=== PATIENT | male | born 1990 | race American Indian/Alaskan Native ===

== ENCOUNTER 2019-03-01 02:37 | Emergency (ER) | payer BC, OTHER ==
--- NOTE | 2019-03-01 03:13 | XRay Report ---
CHEST 1 VIEW INDICATION: Chest Pain. COMPARISON: None. FINDINGS: Support devices: None. Heart: Normal. Lungs/Pleura: No acute pulmonary or pleural findings. IMPRESSION: 1. No acute findings. Signer Name: Iraj Haley MD Signed: 03/01/2019 3:08 AM Workstation Name: [id number]
[2019-03-01 03:19] LABS: Basophils # (Auto) 0.1 K/mm3 (0.0-0.1); Basophils % (Auto) 0.7 % (0.0-1.8); Eosinophils # (Auto) 0.1 K/mm3 (0.0-0.4); Eosinophils % (Auto) 1.7 % (0.0-4.3); Lymphocytes # (Auto) 2.3 K/mm3 (1.2-5.4); Lymphocytes % (Auto) 31.1 % (13.4-35.0); Mean Corpuscular HGB Conc 35 % (32-34); Mean Corpuscular Volume 96 fl (84-94); Monocytes # (Auto) 0.9 K/mm3 (0.0-0.8); Monocytes % (Auto) 12.6 % (0.0-7.3); Platelet Count 256 K/mm3 (140-440); Red Blood Count 5.29 M/mm3 (3.65-5.03); Red Cell Distribution Width 13.6 % (13.2-15.2)
[2019-03-01 03:22] LABS: Hematocrit 50.5 % (35.5-45.6); Hemoglobin 17.9 gm/dl (11.8-15.2)
[2019-03-01 03:40] LABS: BUN/Creatinine Ratio 11; Blood Urea Nitrogen 8 mg/dL (9-20)
[2019-03-01 03:41] LABS: Calcium 9.4 mg/dL (8.4-10.2); Hemolysis Index 44
[2019-03-01] MEDS ORDERED: IBUPROFEN 800 MG TAB PO ONE (04:08)
[2019-03-01] MEDS ORDERED: ALUM-MAG HYDROXIDE-SIMETHICONE 200-200-20MG/5ML ORAL LIQD 30 ML PO ONE (04:08)
[2019-03-01] MEDS ORDERED: LIDOCAINE VISCOUS 2% 15 ML ORAL LIQD PO ONE (04:08)
[2019-03-01] MEDS ORDERED: SODIUM CHLORIDE 0.9% 1000 ML 1,000 ML IV ONE (04:08)
--- NOTE | 2019-03-01 04:51 | Emergency Department Report ---
ED Chest Pain HPI - General Chief Complaint: Chest Pain Stated Complaint: CP Time Seen by Provider: 03/01/19 04:04 Source: patient Mode of arrival: Ambulatory Limitations: No Limitations - History of Present Illness Initial Comments: Mr. Pryor is s 28 y/o aam with hx of htn, Asthma, and obesity, who presents for CP 04/15, x 3 days. states CP orignated on right lateral chest wall , is now on left lateral chest wall pain , now intermittent sob, cough. pt denies fever or chills, no n/v , no numbness or tingling. Symptoms are exacerbated by activity, symptoms are relieved by rest. MD Complaint: chest pain Onset/Timin -: days(s) Onset: during rest Pain Location: substernal, other Pain Radiation: none Severity: moderate Severity scale (0 -10): 5 Quality: tightness Consistency: constant Improves With: nothing Worsens With: inspiration, movement re: denies: nausea, vomting, diaphoresis, dyspnea, sense of impending doom Other Symptoms: cough. denies: fever, syncope, rash, leg swelling, palpitations Treatments Prior to Arrival: none - Related Data On Oral Contraceptives: No Previous Rx's Medication Instructions Recorded Last Taken Type lisinopriL [Zestril TAB] 20 mg PO QDAY #60 tablet 03/16/15 Unknown Rx Famotidine [Pepcid] 20 mg PO BID #60 tablet 03/01/19 Unknown Rx Ibuprofen [Motrin 800 MG tab] 800 mg PO Q8HR PRN #30 tablet 03/01/19 Unknown Rx Allergies Allergy/AdvReac Type Severity Reaction Status Date / Time No Known Allergies Allergy Unverified 03/16/15 19:43 Heart Score - HEART Score History: Slightly suspicious EKG: Non-specific Age: < 45 Risk factors: No known risk factors Troponin: < normal limit HEART Score: 1 ED Review of Systems ROS: Stated complaint: CP Other details as noted in HPI Constitutional: denies: chills, fever Eyes: denies: eye pain, eye discharge, vision change ENT: denies: ear pain, throat pain Respiratory: cough. denies: shortness of breath, wheezing Cardiovascular: denies: chest pain, palpitations Endocrine: no symptoms reported Gastrointestinal: as per HPI, nausea, vomiting Genitourinary: as per HPI Musculoskeletal: denies: back pain, joint swelling, arthralgia Skin: denies: rash, lesions Neurological: denies: headache, weakness, paresthesias Psychiatric: denies: anxiety, depression Hematological/Lymphatic: denies: easy bleeding, easy bruising ED Past Medical Hx - Past Medical History Previous Medical History?: No Hx Hypertension: Yes - Surgical History Past Surgical History?: No - Social History Smoking Status: Former Smoker Substance Use Type: None - Medications Home Medications: Home Medications Medication Instructions Recorded Confirmed Last Taken Type lisinopriL [Zestril TAB] 20 mg PO QDAY #60 tablet 03/16/15 Unknown Rx Famotidine [Pepcid] 20 mg PO BID #60 tablet 03/01/19 Unknown Rx Ibuprofen [Motrin 800 MG tab] 800 mg PO Q8HR PRN #30 tablet 03/01/19 Unknown Rx ED Physical Exam - General Limitations: No Limitations General appearance: alert, in no apparent distress - Head Head exam: Present: atraumatic, normocephalic - Eye Eye exam: Present: normal appearance, PERRL, EOMI Pupils: Present: normal accommodation - ENT ENT exam: Present: normal exam, normal orophraynx, mucous membranes moist, TM's normal bilaterally, normal external ear exam - Neck Neck exam: Present: normal inspection, full ROM. Absent: tenderness, meningismus, lymphadenopathy, thyromegaly - Expanded Neck Exam Expanded Neck exam: Absent: carotid bruit - Respiratory Respiratory exam: Present: normal lung sounds bilaterally, chest wall tenderness (right lateral ). Absent: respiratory distress, wheezes, stridor - Cardiovascular Cardiovascular Exam: Present: regular rate, normal rhythm, normal heart sounds. Absent: systolic murmur, diastolic murmur, rubs, gallop - GI/Abdominal GI/Abdominal exam: Present: soft, normal bowel sounds. Absent: distended, tenderness, guarding, rebound, rigid, bruit, hernia - Rectal Rectal exam: Present: deferred - Extremities Exam Extremities exam: Present: normal inspection, full ROM, normal capillary refill. Absent: tenderness, pedal edema, calf tenderness - Back Exam Back exam: Present: normal inspection, tenderness, rash noted. Absent: full ROM, CVA tenderness (R), CVA tenderness (L), muscle spasm - Neurological Exam Neurological exam: Present: alert, oriented X3, CN II-XII intact, normal gait, reflexes normal - Psychiatric Psychiatric exam: Present: normal affect, normal mood - Skin Skin exam: Present: warm, dry, intact, normal color. Absent: rash CARITO score - Carito Score Age > 65: (0) No Aspirin use within the Past 7 Days: (0) No 3 or more CAD Risk Factors: (0) No 2 or more Angina events in past 24 hrs: (0) No Known CAD with more than 50% Stenosis: (0) No Elevated Cardiac Markers: (0) No ST Deviation Greater than 0.5mm: (0) No CARITO Score: 0 ED Medical Decision Making - Lab Data Result diagrams: 03/01/19 03:02 03/01/19 03:02 Labs 03/01/19 03/01/19 03/01/19 03:02 03:02 04:32 WBC 7.4 RBC 5.29 H Hgb 17.9 H Hct 50.5 H MCV 96 H MCH 34 H MCHC 35 H RDW 13.6 Plt Count 256 Lymph % (Auto) 31.1 [place] % (Auto) 12.6 H Eos % (Auto) 1.7 Baso % (Auto) 0.7 Lymph # 2.3 [place] # 0.9 H Eos # 0.1 Baso # 0.1 Seg Neutrophils % 53.9 Seg Neutrophils # 4.0 Sodium 136 L Potassium 4.0 Chloride 99.4 Carbon Dioxide 19 L Anion Gap 22 BUN 8 L Creatinine 0.7 L Estimated GFR > 60 BUN/Creatinine Ratio 11 Glucose 117 H Calcium 9.4 Troponin T < 0.010 < 0.010 - EKG Data EKG shows normal: sinus rhythm Rate: tachycardia - EKG Data When compared to previous EKG there are: previous EKG unavailable Interpretation: nonspecific ST-T wave lashon (NSR, No ST Elevated HI, EKG interp by ED attending ) Critical care attestation.: If time is entered above; I have spent that time in minutes in the direct care of this critically ill patient, excluding procedure time. ED Disposition Clinical Impression: Mild dehydration, Atypical chest pain Disposition: TO HOME OR SELFCARE Is pt being admited?: No Does the pt Need Aspirin: No Condition: Stable Instructions: Chest Pain (ED), Dehydration (ED) Prescriptions: Ibuprofen [Motrin 800 MG tab] 800 mg PO Q8HR PRN #30 tablet PRN Reason: Pain , Severe (7-10) Famotidine [Pepcid] 20 mg PO BID #60 tablet Referrals: DAWSON LENTZ MD [Staff Physician] - 3-5 Days Forms: Work/School Release Form(ED) Time of Disposition: 05:56
[2019-03-01 06:31] VITALS: BP 146/78
== END 2019-03-01 06:32 | disposition home or self-care (01) ==
LOC: ED 02:37
DX: R07.89 Other chest pain (principal); E86.0 Dehydration; I10 Essential (primary) hypertension
CPT/HCPCS: 36415; 71045; 80048; 84484; 85025; 93005; 93010; 96360; 96361; 99284; J7030

== ENCOUNTER 2019-06-16 11:00 | Emergency (ER) | payer OTHER, SELFPAY ==
[2019-06-16] MEDS ORDERED: SODIUM CHLORIDE 0.9% 1000 ML 1,000 ML IV ONE ×2 (11:37→14:11)
[2019-06-16] MEDS ORDERED: ONDANSETRON 4 MG/2 ML INJ IV ONE ×2 (11:37→14:58)
[2019-06-16] MEDS ORDERED: MORPHINE 4 MG/1 ML INJ IV ONE (11:37)
[2019-06-16] MEDS ORDERED: KETOROLAC 30 MG/1 ML INJ IV ONE (11:37)
--- NOTE | 2019-06-16 11:37 | Emergency Department Report ---
ED General Adult HPI - General Chief complaint: Medical Clearance Stated complaint: FEELING BAD Time Seen by Provider: 06/16/19 11:29 Source: patient Mode of arrival: Ambulatory Limitations: No Limitations - History of Present Illness Initial comments: CC: "I feel shaky." HPI: Mr. Pryor is a 28 yo male with hx of HTN, severe obesity who presents with generalized malaise for several days. He feels shaky. He has productive cough. He has nondescript chest pain. Has generalized aches. He has dry mouth. Drank alcohol last night. He drinks vodka daily. Used ecstacy on Monday night. Unknown sick contacts. Has been taking TheraFlu for cold s ymptoms. Upon further history taking, this gentleman admitted to alcohol, ecstasy, cocaine use on Monday. He was in his normal state of health. He did not hydrate well yesterday. He continued to drink alcohol yesterday evening. Today he has chills cough body aches. He was around several individuals on Monday. He admitted to not practicing appropriate social distancing on Monday. This is the first time he had been out in several months. -: Gradual, days(s) (Several days) Location: chest Quality: aching, dull Consistency: constant Improves with: none Worsens with: none Associated Symptoms: chest pain, cough, malaise - Related Data Previous Rx's Medication Instructions Recorded Last Taken Type lisinopriL [Zestril TAB] 20 mg PO QDAY #60 tablet 03/16/15 Unknown Rx Famotidine [Pepcid] 20 mg PO BID #60 tablet 03/01/19 Unknown Rx Ibuprofen [Motrin 800 MG tab] 800 mg PO Q8HR PRN #30 tablet 03/01/19 Unknown Rx Allergies Allergy/AdvReac Type Severity Reaction Status Date / Time No Known Allergies Allergy Unverified 03/16/15 19:43 ED Review of Systems ROS: Stated complaint: FEELING BAD Other details as noted in HPI Comment: All other systems reviewed and negative Constitutional: malaise Respiratory: cough Cardiovascular: chest pain ED Past Medical Hx - Past Medical History Previous Medical History?: Yes Hx Hypertension: Yes - Surgical History Past Surgical History?: No - Social History Smoking Status: Current Some Day Smoker Substance Use Type: Alcohol, Marijuana, Methamphetamines, Other - Medications Home Medications: Home Medications Medication Instructions Recorded Confirmed Last Taken Type lisinopriL [Zestril TAB] 20 mg PO QDAY #60 tablet 03/16/15 Unknown Rx Famotidine [Pepcid] 20 mg PO BID #60 tablet 03/01/19 Unknown Rx Ibuprofen [Motrin 800 MG tab] 800 mg PO Q8HR PRN #30 tablet 03/01/19 Unknown Rx ED Physical Exam - General Limitations: No Limitations General appearance: alert, in no apparent distress, anxious, other (Clammy sweaty anxious) - Head Head exam: Present: atraumatic, normocephalic - Eye Eye exam: Present: normal appearance - ENT ENT exam: Present: mucous membranes dry - Neck Neck exam: Present: normal inspection, full ROM - Respiratory Respiratory exam: Present: normal lung sounds bilaterally. Absent: respiratory distress, wheezes, rales, rhonchi - Cardiovascular Cardiovascular Exam: Present: normal rhythm, tachycardia, normal heart sounds. Absent: systolic murmur, diastolic murmur, rubs, gallop - GI/Abdominal GI/Abdominal exam: Present: soft, normal bowel sounds. Absent: distended, tenderness, guarding, rebound - Extremities Exam Extremities exam: Present: normal inspection - Neurological Exam Neurological exam: Present: alert, oriented X3 - Psychiatric Psychiatric exam: Present: normal affect, anxious - Skin Skin exam: Present: warm, dry, intact, normal color. Absent: rash ED Course Vital Signs 06/16/19 06/16/19 06/16/19 11:09 11:36 12:20 Temperature 98.7 F 98.7 F Pulse Rate 113 H 112 H Respiratory 20 11 L 11 L Rate Blood Pressure 179/121 Blood Pressure 182/117 [Right] O2 Sat by Pulse 97 Oximetry 06/16/19 15:44 Temperature 98.3 F Pulse Rate 104 H Respiratory 14 Rate Blood Pressure Blood Pressure 176/118 [Right] O2 Sat by Pulse 98 Oximetry ED Medical Decision Making - Lab Data Result diagrams: 06/16/19 11:42 06/16/19 11:42 Laboratory Results - last 72 hr 06/16/19 06/16/19 06/16/19 11:27 11:27 11:42 WBC RBC Hgb Hct MCV MCH MCHC RDW Plt Count Lymph % (Auto) [place] % (Auto) Eos % (Auto) Baso % (Auto) Lymph # [place] # Eos # Baso # Seg Neutrophils % Seg Neutrophils # D-Dimer Sodium Potassium Chloride Carbon Dioxide Anion Gap BUN Creatinine Estimated GFR BUN/Creatinine Ratio Glucose Calcium Ferritin Lactate Dehydrogenase Troponin T C-Reactive Protein Urine Color Eknya Urine Turbidity Clear Urine pH 7.0 Ur Specific [place] 1.023 Urine Protein 100 mg/dl Urine Glucose (UA) Neg Urine Ketones Tr Urine Blood Neg Urine Nitrite Neg Urine Bilirubin Neg Urine Urobilinogen 4.0 Ur Leukocyte Esterase Neg Urine WBC (Auto) 2.0 Urine RBC (Auto) 3.0 U Epithel Cells (Auto) < 1.0 Urine Mucus Few Salicylates < 0.3 L Urine Opiates Screen Presumptive negative Urine Methadone Screen Presumptive negative Acetaminophen Ur Barbiturates Screen Presumptive negative Ur Phencyclidine Scrn Presumptive negative Ur Amphetamines Screen Presumptive positive U Benzodiazepines Scrn Presumptive negative Urine Cocaine Screen Presumptive positive U Marijuana (THC) Screen Presumptive positive Drugs of Abuse Note Disclamer Plasma/Serum Alcohol 06/16/19 06/16/19 06/16/19 11:42 11:42 11:42 WBC RBC Hgb Hct MCV MCH MCHC RDW Plt Count Lymph % (Auto) [place] % (Auto) Eos % (Auto) Baso % (Auto) Lymph # [place] # Eos # Baso # Seg Neutrophils % Seg Neutrophils # D-Dimer Sodium 131 L Potassium 3.6 Chloride 94.5 L Carbon Dioxide 20 L Anion Gap 20 BUN 5 L Creatinine 0.9 Estimated GFR > 60 BUN/Creatinine Ratio 6 Glucose 139 H Calcium 9.4 Ferritin Lactate Dehydrogenase 434 H Troponin T < 0.010 C-Reactive Protein 0.80 Urine Color Urine Turbidity Urine pH Ur Specific [place] Urine Protein Urine Glucose (UA) Urine Ketones Urine Blood Urine Nitrite Urine Bilirubin Urine Urobilinogen Ur Leukocyte Esterase Urine WBC (Auto) Urine RBC (Auto) U Epithel Cells (Auto) Urine Mucus Salicylates Urine Opiates Screen Urine Methadone Screen Acetaminophen < 5.0 L Ur Barbiturates Screen Ur Phencyclidine Scrn Ur Amphetamines Screen U Benzodiazepines Scrn Urine Cocaine Screen U Marijuana (THC) Screen Drugs of Abuse Note Plasma/Serum Alcohol < 0.01 06/16/19 06/16/19 06/16/19 11:42 11:42 11:42 WBC 10.0 RBC 5.07 H Hgb 17.0 H Hct 48.4 H MCV 95 H MCH 34 H MCHC 35 H RDW 13.3 Plt Count 212 Lymph % (Auto) 11.1 L [place] % (Auto) 7.6 H Eos % (Auto) 0.1 Baso % (Auto) 0.6 Lymph # 1.1 L [place] # 0.8 Eos # 0.0 Baso # 0.1 Seg Neutrophils % 80.6 H Seg Neutrophils # 8.0 H D-Dimer < 135.00 Sodium Potassium Chloride Carbon Dioxide Anion Gap BUN Creatinine Estimated GFR BUN/Creatinine Ratio Glucose Calcium Ferritin 2432.0 H Lactate Dehydrogenase Troponin T C-Reactive Protein Urine Color Urine Turbidity Urine pH Ur Specific [place] Urine Protein Urine Glucose (UA) Urine Ketones Urine Blood Urine Nitrite Urine Bilirubin Urine Urobilinogen Ur Leukocyte Esterase Urine WBC (Auto) Urine RBC (Auto) U Epithel Cells (Auto) Urine Mucus Salicylates Urine Opiates Screen Urine Methadone Screen Acetaminophen Ur Barbiturates Screen Ur Phencyclidine Scrn Ur Amphetamines Screen U Benzodiazepines Scrn Urine Cocaine Screen U Marijuana (THC) Screen Drugs of Abuse Note Plasma/Serum Alcohol - EKG Data 06/16/19 12:10 EKG Sinus Tachycardia 110 bpm normal axis prolonged QT no ST elevation - Radiology Data Radiology results: report reviewed Chest radiograph: No acute findings - Medical Decision Making This gentleman presents with body aches cough chills which began today. I suspect COVID 19 coronavirus infection after potential exposure at a recent alliance party on Monday night. There is also an element of dehydration. D-dimer is negative. Ferritin markedly elevated. No evidence of pneumonia. He was treated with IV fluid hydration. Urine drug screen positive for cocaine and marijuana. He stated that he was initially dishonest about his drug use because he was embarrassed. Diagnosis suspected COVID 19 infection, dehydration Vital Signs - 24 hr 06/16/19 06/16/19 06/16/19 11:09 11:36 12:20 Temperature 98.7 F 98.7 F Pulse Rate 113 H 112 H Respiratory 20 11 L 11 L Rate Blood Pressure 179/121 Blood Pressure 182/117 [Right] O2 Sat by Pulse 97 Oximetry 06/16/19 15:44 Temperature 98.3 F Pulse Rate 104 H Respiratory 14 Rate Blood Pressure Blood Pressure 176/118 [Right] O2 Sat by Pulse 98 Oximetry Critical care attestation.: If time is entered above; I have spent that time in minutes in the direct care of this critically ill patient, excluding procedure time. ED Disposition Clinical Impression: Suspected 2019 novel coronavirus infection, Dehydration Disposition: DC-01 TO HOME OR SELFCARE Is pt being admited?: No Does the pt Need Aspirin: No Condition: Stable Instructions: COVID-19 Additional Instructions: You must self isolate self quarantine for the next 14 days. Referrals: ARNOLD NAJERA MD [Staff Physician] - 3-5 Days
[2019-06-16 11:57] LABS: Bilirubin,Urine NEG (Negative); Blood,Urine NEG (Negative); Color,Urine Amber (Yellow); Mucus,Urine FEW /HPF
[2019-06-16 12:00] LABS: Benzodiazepines Screen,Urine PRESUMPTIVE NEGATIVE; Methadone Screen,Urine PRESUMPTIVE NEGATIVE; Opiate Screen,Urine PRESUMPTIVE NEGATIVE
--- NOTE | 2019-06-16 12:01 | XRay Report ---
CHEST 1 VIEW INDICATION: Chest Pain. COMPARISON: 03/01/2019. FINDINGS: Support devices: None. Heart: Normal. Lungs/Pleura: No acute pulmonary or pleural findings. IMPRESSION: 1. No acute findings. No significant change. Signer Name: Iraj Haley MD Signed: 06/16/2019 11:56 AM Workstation Name: [id number]
[2019-06-16 12:05] LABS: Basophils # (Auto) 0.1 K/mm3 (0.0-0.1); Basophils % (Auto) 0.6 % (0.0-1.8); Eosinophils % (Auto) 0.1 % (0.0-4.3); Hematocrit 48.4 % (35.5-45.6); Lymphocytes # (Auto) 1.1 K/mm3 (1.2-5.4); Lymphocytes % (Auto) 11.1 % (13.4-35.0); Mean Corpuscular HGB Conc 35 % (32-34); Mean Corpuscular Volume 95 fl (84-94); Monocytes # (Auto) 0.8 K/mm3 (0.0-0.8); Monocytes % (Auto) 7.6 % (0.0-7.3); Platelet Count 212 K/mm3 (140-440); Red Blood Count 5.07 M/mm3 (3.65-5.03); Red Cell Distribution Width 13.3 % (13.2-15.2)
[2019-06-16 12:22] LABS: BUN/Creatinine Ratio 6; Blood Urea Nitrogen 5 mg/dL (9-20); Calcium 9.4 mg/dL (8.4-10.2); Hemolysis Index 5
[2019-06-16 12:29] LABS: Amphetamine Screen,Urine PRESUMPTIVE POSITIVE; Cannabinoid Screen,Urine PRESUMPTIVE POSITIVE; Cocaine Screen,Urine PRESUMPTIVE POSITIVE
[2019-06-16] MEDS ORDERED: IBUPROFEN 800 MG TAB PO ONE (13:07)
[2019-06-16] MEDS ORDERED: ACETAMINOPHEN 500 MG TAB PO ONE (13:07)
[2019-06-16] MEDS ORDERED: ALUM-MAG HYDROXIDE-SIMETHICONE 200-200-20MG/5ML ORAL LIQD 30 ML PO ONE (14:58)
[2019-06-18 12:36] VITALS: BP 176/118
== END 2019-06-16 16:26 | disposition home or self-care (01) ==
LOC: ED 11:00
DX: Z20.828 Contact with and (suspected) exposure to other viral communicable diseases (principal); E86.0 Dehydration; R53.81 Other malaise; R05 Cough; R07.89 Other chest pain; I10 Essential (primary) hypertension; F17.200 Nicotine dependence, unspecified, uncomplicated; F12.10 Cannabis abuse, uncomplicated; F15.10 Other stimulant abuse, uncomplicated; Z79.1 Long term (current) use of non-steroidal anti-inflammatories (NSAID); Z79.899 Other long term (current) drug therapy
CPT/HCPCS: 36415; 71045; 80048; 80307; 81001; 82728; 83615; 84145; 84484; 85025; 85379; 86140; 93005; 96361; 96374; 96375; 96376; 99284; J1885; J2270; J2405; J7030; 80320; G0480

== ENCOUNTER 2020-06-19 14:29 | Emergency (ER) | payer SELFPAY ==
[2020-06-19 16:09] VITALS: BP 171/118
[2020-06-19] MEDS ORDERED: HYDROcodone/ACETAMINOPHEN 5-325 MG TAB PO ONE (16:14)
--- NOTE | 2020-06-19 16:28 | Emergency Department Report ---
ED Lower Extremity HPI - General Chief Complaint: Extremity Injury, Lower Stated Complaint: LEG INJURY Time Seen by Provider: 06/19/20 16:14 Source: patient Mode of arrival: Wheelchair Limitations: No Limitations, Physical Limitation - History of Present Illness Initial Comments: Patient is a 29-year-old male presents emergency room complaints of right leg injury that occurred yesterday. Patient states that he was playing outdoor basketball and tripped and fell. He states since then he has had right leg pain. He states he has not been able to ambulate very much secondary the pain. He states he has pain in his right ankle and right lateral duncan. He denies ever injuring in the past. He denies any numbness or weakness. Past medical history of hypertension. No allergies medications. - Related Data Previous Rx's Medication Instructions Recorded Last Taken Type lisinopriL [Zestril TAB] 20 mg PO QDAY #60 tablet 03/16/15 Unknown Rx Famotidine [Pepcid] 20 mg PO BID #60 tablet 03/01/19 Unknown Rx Ibuprofen [Motrin 800 MG tab] 800 mg PO Q8HR PRN #30 tablet 03/01/19 Unknown Rx Allergies Allergy/AdvReac Type Severity Reaction Status Date / Time No Known Allergies Allergy Unverified 03/16/15 19:43 ED Review of Systems ROS: Stated complaint: LEG INJURY Other details as noted in HPI Comment: All other systems reviewed and negative ED Past Medical Hx - Past Medical History Previous Medical History?: Yes Hx Hypertension: Yes - Social History Smoking Status: Former Smoker Substance Use Type: None - Medications Home Medications: Home Medications Medication Instructions Recorded Confirmed Last Taken Type lisinopriL [Zestril TAB] 20 mg PO QDAY #60 tablet 03/16/15 Unknown Rx Famotidine [Pepcid] 20 mg PO BID #60 tablet 03/01/19 Unknown Rx Ibuprofen [Motrin 800 MG tab] 800 mg PO Q8HR PRN #30 tablet 03/01/19 Unknown Rx ED Physical Exam - General Limitations: No Limitations, Physical Limitation General appearance: alert, in no apparent distress - Head Head exam: Present: atraumatic, normocephalic - Eye Eye exam: Present: normal appearance - ENT ENT exam: Present: mucous membranes moist - Respiratory Respiratory exam: Absent: respiratory distress, accessory muscle use - Extremities Exam Extremities exam: Present: other (ttp to the right ankle, medial > lateral, diffuse edema of the right ankle, ttp to the right lateral duncan, decreased ROM secondary to pain, no obvious deformity, neurovascularly intact) - Neurological Exam Neurological exam: Present: alert, oriented X3 - Psychiatric Psychiatric exam: Present: normal affect, normal mood - Skin Skin exam: Present: warm, dry, intact ED Course Vital Signs 06/19/20 16:07 Temperature 98.9 F Pulse Rate 102 H Respiratory 20 Rate Blood Pressure 171/118 O2 Sat by Pulse 98 Oximetry - Consultations Consultation #1: 06/19/20 18:18 [facility] transfer line and spoke with Dr. Mohr, orthopedic at [facility] who accepted and resume care of patient, will accept transfer, patient will be transferred to [facility] by EMS 06/19/20 18:43 Spoke to Elida at [facility] for nurse report, report given ED Lower Extremity MDM - Radiology Data Radiology results: report reviewed Ordering Physician: MARIAH CHEATHAM Date of Service: 06/19/20 Procedure(s): XR tibia fibula 2V RT Accession Number(s): [id number] cc: MARIAH CHEATHAM Fluoro Time In Minutes: XR tibia fibula 2V RT, XR ankle 3+V RT, XR foot 2V RT INDICATION / CLINICAL INFORMATION: fall while playing basketball. COMPARISON: None available. FINDINGS: Significant soft tissue swelling along the ankle. There is a oblique fracture of the proximal fibula with associated widening of the tibiofibular syndesmosis and widening of the medial clear space of the ankle.. Normal alignment. Joint spaces are preserved. No destructive osseous lesion or suspicious periosteal reaction. Impression: 1.Maisonneuve fracture with findings consistent with ligamentous injury of ankle. Signer Name: Chago Odell MD Signed: 06/19/2020 5:20 PM Workstation Name: [id number] Transcribed By: CS Dictated By: Chago Odell MD Electronically Authenticated By: Chago Odell MD Signed Date/Time: 06/19/201719 DD/ 11 TD/TT: - Medical Decision Making Patient is a 29-year-old male presents emergency room complaints of right leg injury that occurred yesterday. Patient states that he was playing outdoor basketball and tripped and fell. He states since then he has had right leg pain. He states he has not been able to ambulate very much secondary the pain. He states he has pain in his right ankle and right lateral duncan. He denies ever injuring in the past. He denies any numbness or weakness. Past medical history of hypertension. No allergies medications. Vitals with mild tachycardia and elevated blood pressure, could be partially secondary to pain, patient also has history of hypertension and is not on any medication. On exam:ttp to the right ankle, medial > lateral, diffuse edema of the right ankle, ttp to the right lateral duncan, decreased ROM secondary to pain, no obvious deformity, neurovascularly intact. X-ray right tib-fib, right ankle, right foot:Maisonneuve fracture with findings consistent with ligamentous injury of ankle. Discussed case with Dr. Desai, ER attending who advised to discuss with orthopedic. We do not have orthopedic on-call at our facility today. [facility] transfer line and spoke with Dr. Mohr, orthopedic at [facility] who accepted and resume care of patient, will accept transfer, patient will be transferred to [facility] by EMS. Spoke to Elida at [facility] for nurse report, report given. Patient placed in a long-leg posterior splint by country printer and remained neurovascularly intact. Patient transported to [facility]. Critical care attestation.: If time is entered above; I have spent that time in minutes in the direct care of this critically ill patient, excluding procedure time. ED Disposition Clinical Impression: Maisonneuve fracture Qualifiers: Encounter type: initial encounter Fracture type: closed Fracture alignment: displaced Laterality: right Qualified Code(s): S82.861A - Displaced Maisonneuve's fracture of right leg, initial encounter for closed fracture Disposition: DC/TX-70 ANOTHER TYPE HLTHCARE Is pt being admited?: No Does the pt Need Aspirin: No Condition: Stable Referrals: PRIMARY CARE, [Primary Care Provider] - 3-5 Days Time of Disposition: 18:25 Print Language: KHMER
--- NOTE | 2020-06-19 17:25 | XRay Report ---
XR tibia fibula 2V RT, XR ankle 3+V RT, XR foot 2V RT INDICATION / CLINICAL INFORMATION: fall while playing basketball. COMPARISON: None available. FINDINGS: Significant soft tissue swelling along the ankle. There is a oblique fracture of the proximal fibula with associated widening of the tibiofibular syndesmosis and widening of the medial clear space of th e ankle.. Normal alignment. Joint spaces are preserved. No destructive osseous lesion or suspicious periosteal reaction. Impression: 1.Maisonneuve fracture with findings consistent with ligamentous injury of ankle. Signer Name: Chago Odell MD Signed: 06/19/2020 5:20 PM Workstation Name: [id number]
== END 2020-06-19 19:15 | disposition other institution (70) ==
LOC: ED 14:29
DX: S82.861A Displaced Maisonneuve's fracture of right leg, initial encounter for closed fracture (principal); I10 Essential (primary) hypertension; Z87.891 Personal history of nicotine dependence; Z79.1 Long term (current) use of non-steroidal anti-inflammatories (NSAID); Z79.899 Other long term (current) drug therapy; W01.0XXA Fall on same level from slipping, tripping and stumbling without subsequent striking against object, initial encounter; Y93.67 Activity, basketball; Y92.89 Other specified places as the place of occurrence of the external cause; Y99.8 Other external cause status